=== PATIENT | female | born 1965 | race Caucasian/White ===

== ENCOUNTER 2016-07-28 13:29 | Inpatient (IN) | payer BC ==
[~2016-07-28] VITALS: Ht 162.6 cm; Wt 71.7 kg
[2016-07-28 13:47] VITALS: BP 154/94
--- NOTE | 2016-07-28 14:00 | NUR ---
PATIENT PRESENTS TO ED WITH C/O PALPITATIONS AND BURNING PAIN OCCIPITAL AREA X LAST NIGHT; DENIES N/V/D; SKIN IS PINK/WARM/DRY; AAOX4 WITH EVEN AND STEADY GAIT; LUNGS CLEAR BL; HR EVEN AND REGULAR; PT DENIES ANY FEVER, CP, SOB, OR COUGH AT THIS TIME; PATIENT STATES PAIN OF 2/10 AT THIS TIME; VSS; PATIENT POSITIONED FOR COMFORT; HOB ELEVATED; BEDRAILS UP X2; BED DOWN. ER MD MADE AWARE OF PT STATUS.
--- NOTE | 2016-07-28 14:20 | NUR ---
AAO PT BEING ASSESS BY DR STARK AT BEDSIDE
[2016-07-28] MEDS ORDERED: ACETAMINOPHEN 650 MG/20.3 ML UDC PO ONE (14:30)
[2016-07-28] MEDS ORDERED: NACL 0.9% 1,000 ML IV ONE ×2 (14:30→16:10)
--- NOTE | 2016-07-28 16:41 | NUR ---
AAO PT AMBULATE TO THE RESTROOM WITH DAUGHTER
--- NOTE | 2016-07-28 16:52 | NUR ---
PT AMBULATES BACK TO BED PLACED BACK ON MONITOR, IV FLUID, 99.4, 133, 20, 100% ON ROOM AIR, 154/84. ABLE TO COMMUNICATED WITH FULL SENTENCES, DAUGHTER AT BEDSIDE
--- NOTE | 2016-07-28 17:19 | NUR ---
INITIALLY TRIED TO GIVE REPORT AT 2217, RN NOT READY WILL CALL BACK IN 5 MINUTES PER RN JEN
--- NOTE | 2016-07-28 17:31 | NUR ---
Patient will be admitted to care of DR GRAVES. Admited to [facility]. Will go to room 111A. Belongings list completed. Report to CATRACHITO LI.
--- NOTE | 2016-07-28 17:40 | NUR ---
RECEIVED PATIENT FROM ER VIA [facility]. PT SEEN AT BEDSIDE. ON RA WITH NO S/S DISTRESS OR SOB. PT HAS LEFT AC 20G IV SALINE LOCKED AT THIS TIME. 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 PATIENT HR AT 125BPM, TACHYCARDIC. PT HAS NO C/O PAIN OR CHEST PAIN AT THIS TIME. SKIN INTACT, WARM, AND DRY. CALL LIGHT LEFT AT BEDSIDE, SAFETY MEASURES CHECKED, WILL CONTINUE TO MONITOR.
[2016-07-28 17:50] VITALS: BP 146/84
--- NOTE | 2016-07-28 18:00 | NUR ---
PATIENT'S DAUGHTER AND SON AT BEDSIDE.
--- NOTE | 2016-07-28 18:15 | NUR ---
DR. GRAVES PAGED FOR NEW ADMIT ORDERS. DR CORONA DUMPER BAILER OPERATOR. PER DR CORONA, DR GRAVES IS GOING TO [place] TO SEE A PATIENT. IF DR. GRAVES DOES NOT GIVE NEW ADMIT ORDERS IN ONE HOUR, PLEASE CALL BACK.
[2016-07-28] MEDS ORDERED: ONDANSETRON 4 MG/2 ML VIAL IVP PRN (18:50)
[2016-07-28] MEDS ORDERED: ALPRAZolam 0.25 MG TAB PO PRN (19:05)
[2016-07-28] MEDS ORDERED: HYDROmorphone 1 MG/ML AMP IVP PRN (19:05)
--- NOTE | 2016-07-28 19:10 | NUR ---
REPORT GIVEN TO CATRACHITO YOUNG.
--- NOTE | 2016-07-28 19:15 | NUR ---
PT WAS TAKEN FOR CT SCAN OF THE HEAD.
--- NOTE | 2016-07-28 19:15 | NUR ---
DR GRAVES AT NURSING STATION. UPDATED MD ON PATIENT CONDITION. MD WILL PUT IN ORDERS. REPORTED ORDERS TO CATRACHITO KATZ.
--- NOTE | 2016-07-28 19:30 | NUR ---
RECEIVED REPORT FROM JEN WINSTON AT BEDSIDE. PT JUST CAME BACK FROM CT SCAN OF THE HEAD. ALERT AWAKE ORIENTED X4 INITIAL ASSESSMENT DONE. NO S/S OF RESPIRATORY DISTRESS OR SOB NOTED. NO C/O PAIN OR ANY DISCOMFORT AT THIS TIME. PLAN OF CARE REVIEWED TO PT AND FAMILY AT BEDSIDE AND VERBALIZED UNDERSTANDING. CALL LIGHT WITHIN REACH. WILL CONTINUE TO MONITOR.
[2016-07-28] MEDS: NACL 0.9% 1,000 ML IV SCH (19:49)
[2016-07-28 20:00] VITALS: BP 141/83
[2016-07-29] VITALS: BP 136/79
--- NOTE | 2016-07-29 00:30 | NUR ---
PT IS SLEEPING RIGHT NOW BUT EASILY AROUSBLE. NO S/S OF ANY DISCOMFORT AT THIS TIME. ALL NEEDS ARE ATTENDED. CALL LIGHT WITHIN REACH. WILL CONTINUE TO MONITOR.
[2016-07-29 04:00] VITALS: BP 133/75
[2016-07-29] MEDS: NACL 0.9% 1,000 ML IV SCH (04:37)
--- NOTE | 2016-07-29 05:30 | NUR ---
AM CARE RENDERED. BED LINEN CHANGED. INSTRUCTED PT TO REPOSITION. KEPT CLEAN AND DRY. CALL LIGHT WITHIN REACH. WILL CONTINUE TO MONITOR.
--- NOTE | 2016-07-29 07:26 | NUR ---
PT HAS NO S/S OF ANY DISCOMFORT. PLAN OF CARE ENDORSED TO NICK TRAN RN AT BEDSIDE FOR CONTINUITY OF CARE.
--- NOTE | 2016-07-29 07:27 | NUR ---
RECEIVED REPORT FROM CATRACHITO YOUNG AT PT BEDSIDE. PT RESTING IN BED. NO S/S OF ACUTE DISTRESS. DENIES PAIN. AAOX4. AMBULATORY. LUNG SOUNDS CLEAR BILATERALLY. SAFETY MEASURES ENSURED. BED IN LOW POSITION. IV SITE PATENT AND INTACT. CALL LIGHT WITHIN REACH. WILL CONTINUE TO MONITOR.
[2016-07-29 08:00] VITALS: BP 118/77
--- NOTE | 2016-07-29 08:37 | NUR ---
PATIENT HAS BEEN SCREENED AND CATEGORIZED MODERATE NUTRITION RISK. PATIENT WILL BE SEEN WITHIN 3-5 DAYS OF ADMISSION. 07/31/16-08/02/[address]
--- NOTE | 2016-07-29 10:49 | NUR ---
PT RESTING IN BED. NO S/S OF ACUTE DISTRESS. ALL NEEDS MET.
[2016-07-29] MEDS ORDERED: ALPRAZOLAM0.25 M1 PO (11:28)
[2016-07-29 12:00] VITALS: BP 129/79
--- NOTE | 2016-07-29 12:00 | NUR ---
PATIENT SEEN BY DR. GRAVES. PATIENT TO BE DISCHARGED HOME WITH NEW PRESCRIPTIONS. SON IN LAW AT BEDSIDE TO TAKE PATIENT HOME. MEDICATION INFORMATION GIVEN TO PATIENT AND FAMILY.
--- NOTE | 2016-07-29 12:15 | NUR ---
PATIENT IV REMOVED, CANULA INTACT. NO S/S OF DISTRESS NOTED. PT AAOX4. AMBULATORY. DISCHARGE INSTRUCTIONS GIVEN. PT TO F/U WITH PCP. VERBALIZED UNDERSTANDING. PT SON IN LAW JOY TO TAKE PATIENT HOME. AMBULATED PATIENT TO FRONT LOBBY.
--- NOTE | 2016-07-30 13:12 | NUR ---
FRANCOIS URENA SPOKE WITH FRANCOIS Romo OF [facility] PH# [phone] ON 07/01/16 1500 TIME AND GAVE HER A VERBAL CLINICAL REPORT ON THE PATIENT AND INFORMED HER THAT PATIENT DISCHARGED ON 07/29. SENT H & P AND DISCHARGE SUMMARY TO [facility] FAX# [phone] ATTN: GEETA Romo PH# [phone]
== END 2016-07-29 12:15 | disposition home or self-care (01) | DRG 880 ==
LOC: MED 13:29 → MTU 16:56
PROVIDERS: ADMIT Internal Medicine Pulmonary Disease; ATTEND Internal Medicine Pulmonary Disease
DX: F41.0 Panic disorder [episodic paroxysmal anxiety] (principal); E87.2 Acidosis; G43.909 Migraine, unspecified, not intractable, without status migrainosus; R00.0 Tachycardia, unspecified; Z98.890 Other specified postprocedural states; Z90.49 Acquired absence of other specified parts of digestive tract; Z79.899 Other long term (current) drug therapy; Z88.6 Allergy status to analgesic agent

== ENCOUNTER 2019-03-16 18:56 | Emergency (ER) | payer BC ==
[~2019-03-16] VITALS: Ht 162.6 cm; Wt 69.9 kg
[~2019-03-16 18:56] MED LIST: ALPR0.2518 PO
[2019-03-16 19:01] VITALS: BP 146/84
--- NOTE | 2019-03-16 19:20 | NUR ---
53 YO F BIB SELD PRESENTS TO ED C/O DIFFUSE ABDOMINAL PAIN AND BLOATING X SINCE LAST NIGHT WITH INTERMITTENT DIARRHEA. DENIES N/V. PAIN COMES AND GOES IN INTENSITY. HAS BEEN HAVING SIMILAR S/SX OFF AND ON X SEVERAL WEEKS. HAS BEEN SEEN BY PMD. AWAITING TEST RESULTS. PMH-- HERNIA RX-- DENIES
--- NOTE | 2019-03-16 19:25 | NUR ---
DR. PEREZ EVALUATING AT BEDSIDE.
[2019-03-16] MEDS ORDERED: KETOROLAC 30 MG/ML VIAL IM ONE (20:00)
--- NOTE | 2019-03-16 20:00 | NUR ---
PT RESTING IN BED WITH AT THE BEDSIDE. VSS. WILL CONTINUE TO MONITOR.
[2019-03-16 20:24] LABS: APPEARANCE,URINE CLEAR (CLEAR); BILIRUBIN,URINE NEGATIVE (NEGATIVE); BLOOD, URINE NEGATIVE (NEGATIVE); COLOR,URINE YELLOW (YELLOW); LEUKOCYTE ESTERASE ,URINE NEGATIVE (NEGATIVE); NITRITE, URINE NEGATIVE (NEGATIVE); PH,URINE 5.5 (5.0-9.0); UGLUCOSE NEGATIVE (NEGATIVE)
[2019-03-16 20:25] LABS: BASOPHILS % (AUTO) 0.4 % (0.0-2.0); EOSINOPHILS # (AUTO) 0.1 K/uL (0-0.4); EOSINOPHILS % (AUTO) 1.2 % (0.0-4.0); HEMATOCRIT 44.6 % (36-48); HEMOGLOBIN 15.1 g/dL (12.0-16.0); LYMPHOCYTES # (AUTO) 2.2 K/uL (2.5-16.5); LYMPHOCYTES % (AUTO) 46.7 % (20.5-51.1); MEAN CORPUSCULAR HEMOGLOBIN 33 pg (27-31); MEAN CORPUSCULAR HGB CONC 34 g/dL (33-37); MEAN CORPUSCULAR VOLUME 97.1 fL (80-94); MONOCYTES # (AUTO) 0.4 K/uL (0.8-1.0); MONOCYTES % (AUTO) 8.7 % (1.7-9.3); PLATELET COUNT (AUTO) 243 K/uL (140-450); RED BLOOD CELL COUNT(AUTO) 4.59 MIL/uL (4.20-5.40); RED CELL DISTRIBUTION WIDTH 12.6 % (11.6-13.7); WHITE BLOOD COUNT (AUTO) 4.7 K/uL (4.8-10.8)
[2019-03-16 20:57] LABS: ANION GAP 14.2 (8-16); CARBON DIOXIDE 25.6 mmol/L (21-32); CREATININE 0.7 mg/dL (0.6-1.3); POTASSIUM 3.8 mmol/L (3.5-5.1)
[2019-03-16 20:59] LABS: ALBUMIN 4.1 g/dL (3.4-5.0); TOTAL BILIRUBIN 0.7 mg/dL (0.0-1.0)
--- NOTE | 2019-03-16 21:07 | NUR ---
PT STATES PAIN RELIEF. PAIN LEVEL 0/10
--- NOTE | 2019-03-16 21:58 | NUR ---
PT LEAVING TO CT VIA WHEELCHAIR
--- NOTE | 2019-03-16 22:26 | NUR ---
PT SITTING UP IN BED. VSS. TALKING TO AT BEDSIDE.
[2019-03-16 23:58] VITALS: BP 143/79
--- NOTE | 2019-03-16 23:58 | NUR ---
Patient discharged with v/s stable. Written and verbal after care instructions given and explained. Pt encouraged to stay away from spicy and greasy foods. Recommended to try eating a clear liquid diet. Patient alert, oriented and verbalized understanding of instructions. Ambulatory with steady gait. All questions addressed prior to discharge. ID band removed. Patient advised to follow up with PMD. Rx of given. Patient educated on indication of medication including possible reaction and side effects. Opportunity to ask questions provided and answered.
== END 2019-03-16 23:58 | disposition home or self-care (01) ==
LOC: MED 18:56
DX: R10.30 Lower abdominal pain, unspecified (principal); Z98.890 Other specified postprocedural states; Z79.899 Other long term (current) drug therapy; Z88.5 Allergy status to narcotic agent
CPT/HCPCS: 36415; 74176; 80053; 81003; 83690; 85025; 96372; 99284; J1885

== ENCOUNTER 2022-08-24 10:12 | Emergency (ER) | payer BC ==
[~2022-08-24] VITALS: Ht 160 cm; Wt 68.0 kg
[2022-08-24 10:33] VITALS: BP 133/80
[2022-08-24] MEDS ORDERED: KETOROLAC 30 MG/ML VIAL IM ONE (11:40)
[2022-08-24] MEDS ORDERED: NAPR-54 PO (13:22)
[2022-08-24] MEDS ORDERED: LID5T TP (13:22)
[2022-08-24] MEDS ORDERED: KETOROLAC 30 MG/ML VIAL ONE (14:09)
[2022-08-24 14:51] VITALS: BP 121/56
== END 2022-08-24 14:51 | disposition home or self-care (01) ==
LOC: MED 10:12
DX: S46.911A Strain of unspecified muscle, fascia and tendon at shoulder and upper arm level, right arm, initial encounter (principal); Z79.899 Other long term (current) drug therapy; Z88.5 Allergy status to narcotic agent; X58.XXXA Exposure to other specified factors, initial encounter; Y92.89 Other specified places as the place of occurrence of the external cause; Y93.89 Activity, other specified; Y99.8 Other external cause status
CPT/HCPCS: 73030; 96372; 99283; J1885

== ENCOUNTER 2023-05-25 17:49 | Emergency (ER) | payer BC ==
[~2023-05-25] VITALS: Ht 170.2 cm; Wt 66.2 kg
[~2023-05-25 17:49] MED LIST changes: +LID5T TP; +NAPR-54 PO
[2023-05-25 18:14] VITALS: BP 129/79; PULSE 117; RESP 18; TEMP 98.2; O2SAT 97
[2023-05-25] MEDS ORDERED: ONDANSETRON 4 MG ODT PO ONE (19:20)
[2023-05-25] MEDS ORDERED: HYDROcodone/APAP 5/325 MG 1 TAB TAB PO ONE (19:20)
[2023-05-25] MEDS ORDERED: IBUP-2213 PO (21:11)
[2023-05-25] MEDS ORDERED: ACET-8905 PO (21:11)
[2023-05-25 21:45] VITALS: BP 120/79; PULSE 79; RESP 17; TEMP 98.2; O2SAT 99
== END 2023-05-25 21:45 | disposition home or self-care (01) ==
LOC: MED 17:49
DX: S82.292A Other fracture of shaft of left tibia, initial encounter for closed fracture (principal); S82.492A Other fracture of shaft of left fibula, initial encounter for closed fracture; R03.0 Elevated blood-pressure reading, without diagnosis of hypertension; W18.30XA Fall on same level, unspecified, initial encounter; Y93.89 Activity, other specified; Y92.89 Other specified places as the place of occurrence of the external cause; Y99.8 Other external cause status
CPT/HCPCS: 29515; 73590; 73630; 73700; 99284; Q0162